=== PATIENT | male | born 1950 | race Caucasian/White ===

== ENCOUNTER 2021-10-09 02:55 | Emergency (ER) | payer MEDICARE ==
[~2021-10-09] VITALS: Ht 170.2 cm; Wt 73.0 kg
[2021-10-09 04:07] LABS: BASOPHILS % 1.1 % (0.0-2.0); EOSINOPHILS % 3.8 % (0.0-5.0); HEMATOCRIT. 46.3 % (42.0-52.0); HEMOGLOBIN. 15.6 g/dL (14.0-18.0); LYMPHOCYTES % 30.2 % (20.0-50.0); MEAN CORPUSCULAR HEMOGLOBIN 29.4 pg (28.0-32.0); MEAN CORPUSCULAR VOLUME 87.5 fL (80.0-94.0); MEAN PLATELET VOLUME 7.6 fl (7.4-10.4); MONOCYTES % 7.8 % (2.0-8.0); NEUTROPHILS % 57.1 % (40.0-76.0); PLATELET 223 x1000/uL (130-400); RED CELL DISTRIBUTION WIDTH 14.9 % (11.6-14.6)
[2021-10-09 04:19] LABS: CHLORIDE 108 mEq/L (98-107)
[2021-10-09 05:30] VITALS: BP 143/82
== END 2021-10-09 06:41 | disposition home or self-care (01) ==
LOC: ER 02:55
DX: R42 Dizziness and giddiness (principal); I10 Essential (primary) hypertension
CPT/HCPCS: 36415; 71045; 80053; 84484; 85025; 93005; 99284

== ENCOUNTER 2022-10-01 | Emergency (ER) | payer MEDICARE ==
[~2022-10-01] VITALS: Ht 165.1 cm; Wt 73.7 kg
[2022-10-01 00:23] VITALS: BP 138/85
[2022-10-01 01:06] LABS: CHLORIDE 107 mEq/L (98-107)
[2022-10-01 01:10] LABS: BASOPHILS % 0.4 % (0.0-2.0); EOSINOPHILS % 2.4 % (0.0-5.0); HEMATOCRIT. 44.9 % (42.0-52.0); HEMOGLOBIN. 14.9 g/dL (14.0-18.0); LYMPHOCYTES % 10.8 % (20.0-50.0); MEAN CORPUSCULAR HEMOGLOBIN 29.6 pg (28.0-32.0); MEAN CORPUSCULAR VOLUME 89.2 fL (80.0-94.0); MEAN PLATELET VOLUME 8.2 fl (7.4-10.4); MONOCYTES % 6.5 % (2.0-8.0); NEUTROPHILS % 79.9 % (40.0-76.0); PLATELET 244 x1000/uL (130-400); RED BLOOD CELL COUNT 5.03 mill/uL (4.7-6.1); RED CELL DISTRIBUTION WIDTH 14.5 % (11.6-14.6)
[2022-10-01 01:24] LABS: CLARITY URINE CLOUDY (CLEAR); COLOR URINE YELLOW (YELLOW); KETONES URINE NEGATIVE (NEGATIVE); LEUKOCYTE ESTERASE URINE 3+ (NEGATIVE); NITRITE URINE NEGATIVE (NEGATIVE); OCCULT BLOOD URINE 3+ (NEGATIVE); PROTEIN URINE 1+ (NEGATIVE); SPECIFIC GRAVITY URINE 1.019 (1.005-1.030); UROBILINOGEN URINE 0.2 E.U./dL (0.2-1.0)
[2022-10-01] MEDS ORDERED: LIDOCAINE HCL 1% 20ML VIAL (Pyxis) INJ INFIL NR (05:15)
[2022-10-01] MEDS ORDERED: PYR200 PO (06:03)
[2022-10-01] MEDS ORDERED: SULF1TAB48 PO ×2 (06:03)
[2022-10-01] MEDS ORDERED: ACET-2708 PO (06:03)
[2022-10-01] MEDS: CEFTRIAXONE SODIUM 1 G/VIAL IM NR ×2 (06:07→06:45)
[2022-10-01] MEDS ORDERED: CIPR-263 PO (06:54)
== END 2022-10-01 07:08 | disposition home or self-care (01) ==
LOC: ER
DX: N39.0 Urinary tract infection, site not specified (principal)
CPT/HCPCS: 36415; 76770; 80053; 81003; 85025; 87077; 87086; 87186; 96372; 99285; J0696; J3490